=== PATIENT | male | born 1955 | race Native Hawaiian/Other Pacific Islander ===

== ENCOUNTER 2023-09-06 17:03 | Observation (INO) | payer OTHER ==
[~2023-09-06] VITALS: Ht 165.1 cm; Wt 77.1 kg
[2023-09-06 17:03] VITALS: BP 136/78; TEMP 98.2
[~2023-09-06 17:03] MED LIST: OMEP20CA PO
[2023-09-06 17:51] LABS: PLATELET COUNT 347 K/uL (142-355)
[2023-09-07 01:30] VITALS: BP 123/66; TEMP 99.1
[2023-09-07 04:00] VITALS: BP 92/55; TEMP 98.9
[2023-09-07 08:00] VITALS: BP 99/62; TEMP 99.2
[2023-09-07] MEDS ORDERED: [UNRECOGNIZED DRUG - CODE] PO (11:31)
[2023-09-07] MEDS ORDERED: MEDR150I3 IM (11:32)
[2023-09-07] MEDS ORDERED: FAMO20TA4 PO (11:33)
[2023-09-07] MEDS ORDERED: DIVA500T2 PO (11:33)
[2023-09-07] MEDS ORDERED: ZIPR20CA PO (11:34)
[2023-09-07] MEDS ORDERED: EUTHYROX50 MCG PO (11:35)
[2023-09-07] MEDS ORDERED: IPRATROPIUM BROMIDE NAS (11:35)
[2023-09-07] MEDS ORDERED: FLUOXETINE20 MG PO (11:36)
[2023-09-07] MEDS ORDERED: QUETIAPINE50 MG PO (11:36)
[2023-09-07] MEDS ORDERED: VITAMIN D31000 UNI4 PO (11:37)
[2023-09-07] MEDS ORDERED: TRAMADOL HYDROC50 MG PO (11:37)
[2023-09-07] MEDS ORDERED: TYLENOL325 MG PO (11:37)
[2023-09-07] MEDS ORDERED: BASAGLAR K100 UNIT/M SC (11:39)
[2023-09-07 11:41] LABS: PLATELET COUNT 263 K/uL (142-355)
[2023-09-07] MEDS ORDERED: HOUSE SUPPLEMENT PO (11:42)
[2023-09-07 12:17] LABS: POTASSIUM 3.8 mmol/L (3.6-5.2)
[2023-09-08 08:43] VITALS: BP 123/66; TEMP 97.9; Ht 165.1 cm; Wt 77.1 kg
== END 2023-09-07 09:45 | disposition other institution (70) ==
LOC: ED 17:03 → MED/SURG 19:59
PROVIDERS: ADMIT Family Medicine; ATTEND Family Medicine
DX: E86.0 Dehydration (principal); E11.65 Type 2 diabetes mellitus with hyperglycemia; I10 Essential (primary) hypertension; R42 Dizziness and giddiness; K21.9 Gastro-esophageal reflux disease without esophagitis; F20.89 Other schizophrenia; R45.1 Restlessness and agitation; G89.29 Other chronic pain; R63.0 Anorexia; Z79.4 Long term (current) use of insulin; Z68.28 Body mass index [BMI] 28.0-28.9, adult
CPT/HCPCS: 80048; 80053; 81002; 83605; 85027; 87635; 93005; 96361; 96365; 96372; 96376; 99221; 99285; G0378; J0132; J1200; J1630; J2060; J3486; U0003